=== PATIENT | male | born 1985 | race Two or more races ===

== ENCOUNTER 2018-05-22 18:20 | Emergency (ER) | payer BC ==
[~2018-05-22] VITALS: Ht 177.8 cm; Wt 108.9 kg
[2018-05-22 19:26] VITALS: BP 136/91
[2018-05-22 20:06] LABS: APPEARANCE,URINE Clear (CLEAR); BILIRUBIN,URINE Negative (NEGATIVE); BLOOD, URINE Negative Ery/uL (NEGATIVE); COLOR,URINE Yellow (YELLOW); KETONES,URINE Negative (NEGATIVE); LEUKOCYTE ESTERASE ,URINE Negative (NEGATIVE); NITRITE, URINE Negative (NEGATIVE); PH,URINE 5.5 (5.0-8.0); PROTEIN,URINE Negative (NEGATIVE); UGLUCOSE Negative (NEGATIVE); UROBILINOGEN,URINE 0.2 EU/dL (0.2)
--- NOTE | 2018-05-22 20:28 | NUR ---
ULTRASOUND AT BEDSIDE.
== END 2018-05-22 21:57 | disposition home or self-care (01) ==
LOC: ER 18:42
DX: N50.812 Left testicular pain (principal); N50.811 Right testicular pain
CPT/HCPCS: 76870; 81001; 87491; 87591; 99284; A4606; 81000-TC